=== PATIENT | female | born 1995 | race Caucasian/White ===

== ENCOUNTER 2017-12-08 22:57 | Emergency (ER) | payer OTHER ==
[2017-12-08 23:19] VITALS: BP 122/71; PULSE 96; TEMP 97.9; BMI 37.8
[2017-12-09] MEDS ORDERED: ALBUTEROL SO4 2.5/IPRATROPIUM 0.5 INH SOL 3 ML VIAL.NEB. NEB ONE ×4 (01:32→02:00)
[2017-12-09] MEDS ORDERED: diphenhydrAMINE HCL 25 MG CAPSULE (FP) PO ONE ×2 (01:54→02:00)
[2017-12-09] MEDS ORDERED: predniSONE 20 MG TABLET (UD) PO ONE (01:54)
[2017-12-09] MEDS ORDERED: predniSONE 20 MG TABLET (UD) ONE (02:00)
--- NOTE | 2017-12-09 02:44 | PDOC ---
History of Present Illness - General History Source: Patient Exam Limitations: No Limitations - History of Present Illness Initial Comments: 12/09/17 02:20 Patient is a 22-year-old female with no past medical history environmental allergies complaints of shortness of breath - which she describes as a tightness in the chest since this morning. States feels like its hard to take a deep breath in. She took Benadryl 25mg po at 10:30 am, then coffee without relief of symptoms. She denies any URI symptoms, asthma. However she recently got a poodle dog 1 week ago and has environmental allergies. No OCP, recent travel, leg swelling, fam hx of dvt/pe. denies fever, chills, URI symptoms, asthma, CP. Patient states she prior episode of tightness but in the throat when she went out in the cold. PMD: [facility] PMHX: neg PSocHx: neg for etoh, durg, cig all: NKDA GENERAL/CONSTITUTIONAL: [No fever or chills. No weakness. No weight change.] HEAD, EYES, EARS, NOSE AND THROAT: [No change in vision. No ear pain or discharge. No sore throat.] CARDIOVASCULAR: [No chest pain or shortness of breath.] RESPIRATORY: [No cough, wheezing, or hemoptysis.] GASTROINTESTINAL: [No nausea, vomiting, diarrhea or constipation. No rectal bleeding.] GENITOURINARY: [No dysuria, frequency, or change in urination.] MUSCULOSKELETAL: [No joint or muscle swelling or pain. No neck or back pain.] SKIN AND BREASTS: [No rash or easy bruising.] NEUROLOGIC: [No headache, vertigo, loss of consciousness, or loss of sensation.] PSYCHIATRIC: [No depression or anxiety.] ENDOCRINE: [No increased thirst. No abnormal weight change.] HEMATOLOGIC/LYMPHATIC: [No anemia, easy bleeding, or history of blood clots.] ALLERGIC/IMMUNOLOGIC: [No hives or skin allergy. No latex allergy.] GENERAL: [The patient is awake, alert, and fully oriented, in no acute distress.] HEAD: [Normal with no signs of trauma.] EYES: [Pupils equal, round and reactive to light, extraocular movements intact, sclera anicteric, conjunctiva clear.] ENT: [Ears normal, nares patent, oropharynx clear without exudates. Moist mucous membranes.] NECK: [Normal range of motion, supple without lymphadenopathy, JVD, or masses.] LUNGS: [Breath sounds equal, clear to auscultation bilaterally. No wheezes, and no crackles.] HEART: [Regular rate and rhythm, normal S1 and S2 without murmur, rub.] ABDOMEN: [Soft, nontender, normoactive bowel sounds. No guarding, no rebound. No masses.] EXTREMITIES: [Normal range of motion, no edema. No clubbing or cyanosis. No cords, erythema, or tenderness.] NEUROLOGICAL: [Cranial nerves II through XII grossly intact. Normal speech, normal gait.] PSYCH: [Normal mood, normal affect.] SKIN: [Warm, Dry, normal turgor, no rashes or lesions noted.] <Lopez Kingsley - Last Filed: 12/09/17 05:07> <Radha Navarro - Last Filed: 12/09/17 05:45> - General Chief Complaint: Shortness of Breath Stated Complaint: SHORTNESS OF BREATH Time Seen by Provider: 12/09/17 01:05 Past History - Past Medical History COPD: No Other medical history: Pt denies - Immunization History Immunization Up to Date: Yes - Suicide/Smoking/Psychosocial Hx Smoking History: Never smoked Have you smoked in the past 12 months: No Information on smoking cessation initiated: No Hx Alcohol Use: No Drug/Substance Use Hx: No Substance Use Type: None <Lopez Kingsley - Last Filed: 12/09/17 05:07> <Radha Navarro - Last Filed: 12/09/17 05:45> - Past Medical History Allergies/Adverse Reactions: Allergies Allergy/AdvReac Type Severity Reaction Status Date / Time dog dander Allergy Verified 12/08/17 23:15 No Known Drug Allergies Allergy Verified 12/09/17 01:45 Home Medications: Ambulatory Orders No Home Medications 0 dose .ROUTE UTDICT 04/22/14 Albuterol Sulfate Inhaler - [Ventolin HFA Inhaler -] 1 - 2 inh PO QID #1 inhaler 12/09/17 Diphenhydramine HCl [Benadryl -] 25 mg PO Q6H #28 capsule 12/09/17 predniSONE [Deltasone -] 40 mg PO DAILY #6 tablet 12/09/17 *Physical Exam - Vital Signs Last Vital Signs Temp Pulse Resp BP Pulse Ox 97.9 F 96 H 20 122/71 98 12/08/17 23:16 12/08/17 23:16 12/08/17 23:16 12/08/17 23:16 12/08/17 23:16 <Lopez Kingsley - Last Filed: 12/09/17 05:07> - Vital Signs Last Vital Signs Temp Pulse Resp BP Pulse Ox 97.9 F 96 H 20 122/71 98 12/08/17 23:16 12/08/17 23:16 12/08/17 23:16 12/08/17 23:16 12/08/17 23:16 <Radha Navarro - Last Filed: 12/09/17 05:45> ED Treatment Course - ADDITIONAL ORDERS Additional order review: Laboratory Results 12/09/17 01:55 Urine HCG, Qual Negative - RADIOLOGY Radiology Studies Ordered: Category Date Time Status CHEST PA & LAT [RAD] Stat Radiology 12/09/17 01:54 Ordered - Medications Given in the ED: ED Medications Discontinued Medications Generic Name Dose Route Start Last Admin Trade Name Freq PRN Reason Stop Dose Admin Albuterol/Ipratropium 1 amp 12/09/17 01:37 12/09/17 01:37 Duoneb - NEB 12/09/17 01:38 1 amp NOW ONE Administration Albuterol/Ipratropium 1 amp 12/09/17 01:54 12/09/17 02:06 Duoneb - NEB 12/09/17 01:55 1 amp ONCE ONE Administration Diphenhydramine HCl 50 mg 12/09/17 01:54 12/09/17 02:06 Benadryl - PO 12/09/17 01:55 50 mg ONCE ONE Administration Prednisone 60 mg 12/09/17 01:54 12/09/17 02:06 Deltasone - PO 12/09/17 01:55 60 mg ONCE ONE Administration <Lopez Kingsley - Last Filed: 12/09/17 05:07> - ADDITIONAL ORDERS Additional order review: Laboratory Results 12/09/17 01:55 Urine HCG, Qual Negative - Medications Given in the ED: ED Medications Discontinued Medications Generic Name Dose Route Start Last Admin Trade Name Freq PRN Reason Stop Dose Admin Albuterol/Ipratropium 1 amp 12/09/17 01:37 12/09/17 01:37 Duoneb - NEB 12/09/17 01:38 1 amp NOW ONE Administration Albuterol/Ipratropium 1 amp 12/09/17 01:54 12/09/17 02:06 Duoneb - NEB 12/09/17 01:55 1 amp ONCE ONE Administration Diphenhydramine HCl 50 mg 12/09/17 01:54 12/09/17 02:06 Benadryl - PO 12/09/17 01:55 50 mg ONCE ONE Administration Prednisone 60 mg 12/09/17 01:54 12/09/17 02:06 Deltasone - PO 12/09/17 01:55 60 mg ONCE ONE Administration <Radha Navarro - Last Filed: 12/09/17 05:45> Medical Decision Making - Medical Decision Making 12/09/17 02:44 Patient is a 22-year-old female with no past medical history environmental allergies complaints of shortness of breath - which she describes as a tightness in the chest since this morning. Patient got a dog 1 week ago so symptoms, suspect allergy symptoms. will give neb treatment, prednisone, benadryl. cxr reassess Patient was treated with nebs, prednisone 60mg po and benadryl 50mg po Patient feels improved I discussed the physical exam findings, ancillary test results and final diagnoses with the patient. I answered all of the patient's questions. The patient was satisfied with the care received and felt comfortable with the discharge plan and treatment plan. The Patient agrees to follow up with the primary care physician within 24-72 hours. <Lopez Kingsley - Last Filed: 12/09/17 05:07> *DC/Admit/Observation/Transfer <Lopez Kingsley - Last Filed: 12/09/17 05:07> - Attestations Physician Attestion: I reviewed the case with the mid-level practitioner and agree with the mid- level practitioner's assessment, diagnosis and disposition. <Radha Navarro - Last Filed: 12/09/17 05:45> Diagnosis at time of Disposition: Environmental allergies - Discharge Dispostion Disposition: HOME Condition at time of disposition: Stable - Prescriptions Prescriptions: Albuterol Sulfate Inhaler - [Ventolin HFA Inhaler -] 1 - 2 inh PO QID #1 inhaler Diphenhydramine HCl [Benadryl -] 25 mg PO Q6H #28 capsule predniSONE [Deltasone -] 40 mg PO DAILY #6 tablet - Patient Instructions Printed Discharge Instructions: How to Reduce Environmental Allergens Additional Instructions: Your Discharge Instructions: You must call primary care physician within 24 hours to arrange follow-up. Return to the Emergency Department with any new, persistent or worsening symptoms, for fever, chills, SOB, dizziness or any other concerning changes that may occur. Please get rid of the allergens.
== END 2017-12-09 03:35 | disposition home or self-care (01) ==
LOC: JER 22:57
PROC: 3E0F7GC Introduction of Other Therapeutic Substance into Respiratory Tract, Via Natural or Artificial Opening (ICD-10-PCS; principal; 2017-12-08)
PROC: 3E0F7GC Introduction of Other Therapeutic Substance into Respiratory Tract, Via Natural or Artificial Opening (ICD-10-PCS; 2017-12-08)
DX: J30.89 Other allergic rhinitis (principal)
CPT/HCPCS: 71046-TC-FY; 84703; 94640; 99282-25